=== PATIENT | female | born 1970 | race Caucasian/White ===

== ENCOUNTER 2016-10-05 16:04 | Emergency (ER) | payer OTHER ==
[~2016-10-05] VITALS: Ht 170.2 cm; Wt 59.0 kg
[~2016-10-05 16:04] MED LIST: ATA25 PO; ATARAX50 M PO; CLA10 PO; FLA500 PO; HIBICLENS118 ML TOP; HYD1C TOP; KLOR-CON M2020 MEQ PO; LEXAPRO20 MG PO; MAGNESIUM OXID400 MG PO; MUPIROCIN2% TOP; NEU300 PO; NEURONTIN300 PO; NOR10T PO; PRE20 PO; PROVENT PO; SEROQUEL300 MG PO; SULFAMETHOXAZO PO; TRAZODONE HYDR150 MG PO; TRAZODONE100 M1 PO; VENTOLIN H0.09 MG/Ac IH; VENTOLIN PO; VICES PO
[2016-10-05 17:32] LABS: CALCIUM 9.8 mg/dL (8.5-10.1); CARBON DIOXIDE 18.2 mmol/L (21-32); CHLORIDE SERUM 109 mmol/L (98-107); GFR1 > 60 mL/min; GLUCOSE SERUM 96 mg/dL (74-106); POTASSIUM SERUM 3.3 mmol/L (3.5-5.1); SODIUM SERUM 146 mmol/L (136-145)
[2016-10-05 19:26] VITALS: BP 147/99
== END 2016-10-05 19:31 | disposition home or self-care (01) ==
LOC: ED 16:04
PROVIDERS: Emergency Medicine
DX: E86.0 Dehydration (principal); I69.352 Hemiplegia and hemiparesis following cerebral infarction affecting left dominant side; Z88.5 Allergy status to narcotic agent; Z90.49 Acquired absence of other specified parts of digestive tract; Z98.890 Other specified postprocedural states
CPT/HCPCS: J1885; J2405

== ENCOUNTER 2016-12-21 16:54 | Emergency (ER) | payer OTHER ==
[2016-12-21 18:53] VITALS: BP 143/96
== END 2016-12-21 18:53 | disposition home or self-care (01) ==
LOC: ED 16:54
DX: S50.11XA Contusion of right forearm, initial encounter (principal); G89.29 Other chronic pain; F17.210 Nicotine dependence, cigarettes, uncomplicated; G81.94 Hemiplegia, unspecified affecting left nondominant side; Z71.6 Tobacco abuse counseling; Z86.73 Personal history of transient ischemic attack (TIA), and cerebral infarction without residual deficits; W17.89XA Other fall from one level to another, initial encounter; Y93.89 Activity, other specified; Y99.8 Other external cause status; Y92.89 Other specified places as the place of occurrence of the external cause
CPT/HCPCS: 99406

== ENCOUNTER 2017-10-12 20:04 | Emergency (ER) | payer OTHER ==
[~2017-10-12] VITALS: Ht 170.2 cm; Wt 68.0 kg
[2017-10-12 20:16] VITALS: Ht 170.2 cm; Wt 68.0 kg
[2017-10-12 23:53] VITALS: BP 111/74
== END 2017-10-12 23:53 | disposition home or self-care (01) ==
LOC: ED 20:04
DX: S01.91XA Laceration without foreign body of unspecified part of head, initial encounter (principal); I10 Essential (primary) hypertension; Z88.5 Allergy status to narcotic agent; X58.XXXA Exposure to other specified factors, initial encounter; Y93.89 Activity, other specified; Y92.89 Other specified places as the place of occurrence of the external cause; Y99.8 Other external cause status
CPT/HCPCS: 83880; J1885; J2405; J3010

== ENCOUNTER 2017-10-22 13:23 | Emergency (ER) | payer OTHER ==
[~2017-10-22] VITALS: Ht 167.6 cm; Wt 68.0 kg
[2017-10-22 13:51] VITALS: Ht 167.6 cm; Wt 68.0 kg
[2017-10-22 14:50] LABS: BASOPHIL % 0.3 % (0-2)
[2017-10-22 14:59] LABS: PLATELET COUNT 118 x10^3mcL (130-400); RED CELL DISTRIBUTION WIDTH 14.7 % (11.5-14.5)
[2017-10-22 15:05] LABS: ALBUMIN 3.4 g/dL (3.4-5.0); ALKALINE PHOSPHATASE 302 U/L (46-116); ALT/SGPT 39 U/L (14-59); AST/SGOT 28 U/L (15-37); BILIRUBIN TOTAL 0.5 mg/dL (0.20-1.00); CALCIUM 8.6 mg/dL (8.5-10.1); CARBON DIOXIDE 27.4 mmol/L (21-32); CHLORIDE SERUM 119 mmol/L (98-107); CREATININE SERUM 0.8 mg/dL (0.6-1.0); GFR1 > 60 mL/min; GLUCOSE SERUM 92 mg/dL (74-106); SODIUM SERUM 142 mmol/L (136-145); TOTAL PROTEIN, SERUM 6.4 g/dL (6.4-8.2)
[2017-10-22 16:36] VITALS: BP 153/94
== END 2017-10-22 16:36 | disposition home or self-care (01) ==
LOC: ED 13:23
PROVIDERS: Emergency Medicine
DX: S30.0XXA Contusion of lower back and pelvis, initial encounter (principal); E87.6 Hypokalemia; D64.89 Other specified anemias; G89.29 Other chronic pain; I10 Essential (primary) hypertension; Z88.5 Allergy status to narcotic agent; W18.39XA Other fall on same level, initial encounter; Y93.89 Activity, other specified; Y92.89 Other specified places as the place of occurrence of the external cause; Y99.8 Other external cause status
CPT/HCPCS: 36415; J1885

== ENCOUNTER 2018-02-14 12:10 | Emergency (ER) | payer OTHER ==
[2018-02-14 12:18] VITALS: Ht 170.2 cm
[2018-02-14 16:45] LABS: BASOPHIL % 0.5 % (0-2); PLATELET COUNT 147 x10^3mcL (130-400)
[2018-02-14 16:46] LABS: RED CELL DISTRIBUTION WIDTH 15.5 % (11.5-14.5)
[2018-02-14 16:49] LABS: CALCIUM 9.5 mg/dL (8.5-10.1); CARBON DIOXIDE 25.6 mmol/L (21-32); CHLORIDE SERUM 102 mmol/L (98-107); CREATININE SERUM 0.8 mg/dL (0.6-1.0); GFR1 > 60 mL/min; GLUCOSE SERUM 99 mg/dL (74-106); POTASSIUM SERUM 3.4 mmol/L (3.5-5.1); SODIUM SERUM 138 mmol/L (136-145)
[2018-02-14 16:53] LABS: ALBUMIN 4.8 g/dL (3.4-5.0); ALKALINE PHOSPHATASE 347 U/L (46-116); ALT/SGPT 280 U/L (14-59); AST/SGOT 194 U/L (15-37)
[2018-02-14 17:59] VITALS: BP 145/105
== END 2018-02-14 17:59 | disposition home or self-care (01) ==
LOC: ED 12:10
PROVIDERS: Emergency Medicine
DX: G43.909 Migraine, unspecified, not intractable, without status migrainosus (principal); K21.0 Gastro-esophageal reflux disease with esophagitis; R74.8 Abnormal levels of other serum enzymes; I10 Essential (primary) hypertension; Z86.73 Personal history of transient ischemic attack (TIA), and cerebral infarction without residual deficits; Z98.890 Other specified postprocedural states; Z90.49 Acquired absence of other specified parts of digestive tract
CPT/HCPCS: J1200; J2765; J3490; J7030; Q0092

== ENCOUNTER 2018-05-02 01:33 | Inpatient (IN) | payer OTHER ==
[~2018-05-02] VITALS: Ht 170.2 cm; Wt 65.8 kg
[2018-05-02 01:44] VITALS: Ht 170.2 cm; Wt 65.8 kg
[2018-05-02 02:23] LABS: CALCIUM 9.8 mg/dL (8.5-10.1); CARBON DIOXIDE 25.2 mmol/L (21-32); CHLORIDE SERUM 101 mmol/L (98-107); CREATININE SERUM 0.9 mg/dL (0.6-1.0); GFR1 > 60 mL/min; GLUCOSE SERUM 144 mg/dL (74-106); POTASSIUM SERUM 3.3 mmol/L (3.5-5.1); SODIUM SERUM 138 mmol/L (136-145)
[2018-05-02 03:56] LABS: BASOPHIL % 0 % (0-2); PLATELET COUNT 114 x10^3mcL (130-400); RED CELL DISTRIBUTION WIDTH 14.6 % (11.5-14.5)
[2018-05-02 05:27] LABS: UA SPECIFIC GRAVITY 1.015 (1.005-1.035); microscopic required? YES; urine erythrocyte TRACE (NEGATIVE)
[2018-05-02] MEDS ORDERED: ZANAFLEX4 MG PO ×2 (05:36→05:37)
[2018-05-02] MEDS ORDERED: AMLODIPINE BES2.5 M1 PO (05:38)
[2018-05-02] MEDS ORDERED: LIPI20 PO (05:39)
[2018-05-02] MEDS ORDERED: AMBIEN5 MG PO (05:40)
[2018-05-02 06:28] LABS: AMPHETAMINE QUAL UR NONE DETECTED (See below)
[2018-05-02 06:28] LABS: MAGNESIUM 1.9 mg/dL (1.8-2.4); PHOSPHOROUS 2.2 mg/dL (2.5-4.9)
[2018-05-02 07:13] LABS: CHOLESTEROL/HDL RATIO 1.7
[2018-05-02 10:14] VITALS: BP 159/108
[2018-05-02 12:42] VITALS: BP 185/90
[2018-05-02 17:13] VITALS: BP 175/78
[2018-05-02 18:26] VITALS: BP 163/100
[2018-05-02 20:46] VITALS: BP 159/101
[2018-05-03 07:01] LABS: BASOPHIL % 0.4 % (0-2)
[2018-05-03 07:07] LABS: PLATELET COUNT 89 x10^3mcL (130-400); RED CELL DISTRIBUTION WIDTH 14.7 % (11.5-14.5)
[2018-05-03 07:18] LABS: CALCIUM 8.7 mg/dL (8.5-10.1); CARBON DIOXIDE 25.9 mmol/L (21-32); CHLORIDE SERUM 104 mmol/L (98-107); CREATININE SERUM 0.7 mg/dL (0.6-1.0); GFR1 > 60 mL/min; GLUCOSE SERUM 79 mg/dL (74-106); MAGNESIUM 2.1 mg/dL (1.8-2.4); PHOSPHOROUS 2.4 mg/dL (2.5-4.9); POTASSIUM SERUM 3.3 mmol/L (3.5-5.1); SODIUM SERUM 139 mmol/L (136-145)
[2018-05-03 07:43] VITALS: BP 95/53
[2018-05-03 13:15] VITALS: BP 95/62
[2018-05-03 16:35] VITALS: BP 85/53
[2018-05-03 19:02] VITALS: BP 118/76
[2018-05-04 05:32] VITALS: BP 128/71
[2018-05-04 06:58] LABS: CALCIUM 7.7 mg/dL (8.5-10.1); CARBON DIOXIDE 24.7 mmol/L (21-32); CHLORIDE SERUM 108 mmol/L (98-107); CREATININE SERUM 0.8 mg/dL (0.6-1.0); GFR1 > 60 mL/min; GLUCOSE SERUM 82 mg/dL (74-106); MAGNESIUM 1.9 mg/dL (1.8-2.4); PHOSPHOROUS 2.7 mg/dL (2.5-4.9); POTASSIUM SERUM 3.5 mmol/L (3.5-5.1); SODIUM SERUM 141 mmol/L (136-145)
[2018-05-04 06:59] LABS: BASOPHIL % 0.7 % (0-2); RED CELL DISTRIBUTION WIDTH 14.3 % (11.5-14.5)
[2018-05-04 07:06] LABS: PLATELET COUNT 77 x10^3mcL (130-400)
[2018-05-04 08:12] VITALS: BP 122/91
[2018-05-04 09:48] VITALS: BP 122/91
== END 2018-05-04 12:40 | disposition home health service (06) | DRG 249 ==
LOC: ED 01:33 → DU 05:27
PROVIDERS: Emergency Medicine; General Practice; Internal Medicine
DX: A08.4 Viral intestinal infection, unspecified (principal); K74.60 Unspecified cirrhosis of liver; E83.39 Other disorders of phosphorus metabolism; M84.459A Pathological fracture, hip, unspecified, initial encounter for fracture; E86.0 Dehydration; E87.6 Hypokalemia; K29.70 Gastritis, unspecified, without bleeding; R73.9 Hyperglycemia, unspecified; I73.9 Peripheral vascular disease, unspecified; G43.909 Migraine, unspecified, not intractable, without status migrainosus; I16.0 Hypertensive urgency; M62.838 Other muscle spasm; E78.5 Hyperlipidemia, unspecified; K21.9 Gastro-esophageal reflux disease without esophagitis; G89.29 Other chronic pain; M54.9 Dorsalgia, unspecified; I10 Essential (primary) hypertension; Z68.23 Body mass index [BMI] 23.0-23.9, adult; Z86.73 Personal history of transient ischemic attack (TIA), and cerebral infarction without residual deficits; Z90.49 Acquired absence of other specified parts of digestive tract; Z87.11 Personal history of peptic ulcer disease; Z82.62 Family history of osteoporosis; Z87.891 Personal history of nicotine dependence; Z87.440 Personal history of urinary (tract) infections
CPT/HCPCS: 97116-GP; 97530-GP; J1200; J1644; J1885; J2270; J2405; J2550; J2765; J3480; J7030; Q0092

== ENCOUNTER 2018-06-24 02:20 | Emergency (ER) | payer OTHER ==
[~2018-06-24] VITALS: Ht 170.2 cm; Wt 72.6 kg
[~2018-06-24 02:20] MED LIST changes: +AMBIEN5 MG PO; +AMLODIPINE BES2.5 M1 PO; +LIPI20 PO; +ZANAFLEX4 MG PO
[2018-06-24 02:30] VITALS: Ht 170.2 cm; Wt 72.6 kg
[2018-06-24 03:02] LABS: BASOPHIL % 0.4 % (0-2); PLATELET COUNT 146 x10^3mcL (130-400); RED CELL DISTRIBUTION WIDTH 13.5 % (11.5-14.5)
[2018-06-24 03:10] LABS: CALCIUM 9.9 mg/dL (8.5-10.1); CARBON DIOXIDE 20.8 mmol/L (21-32); CHLORIDE SERUM 107 mmol/L (98-107); GFR1 > 60 mL/min; GLUCOSE SERUM 121 mg/dL (74-106); POTASSIUM SERUM 3.8 mmol/L (3.5-5.1); SODIUM SERUM 145 mmol/L (136-145)
[2018-06-24 03:15] LABS: ALBUMIN 4.8 g/dL (3.4-5.0); ALKALINE PHOSPHATASE 272 U/L (46-116); ALT/SGPT 99 U/L (14-59); AST/SGOT 59 U/L (15-37); BILIRUBIN TOTAL 0.56 mg/dL (0.20-1.00); LIPASE 122 IU/L (73-393); TOTAL PROTEIN, SERUM 8.7 g/dL (6.4-8.2)
[2018-06-24 05:03] LABS: AMPHETAMINE QUAL UR NONE DETECTED (See below)
[2018-06-24 07:06] VITALS: BP 165/92
== END 2018-06-24 07:06 | disposition home or self-care (01) ==
LOC: ED 02:20
PROVIDERS: Emergency Medicine
DX: R11.2 Nausea with vomiting, unspecified (principal); R10.13 Epigastric pain; I10 Essential (primary) hypertension; G89.29 Other chronic pain; M54.9 Dorsalgia, unspecified; Z86.73 Personal history of transient ischemic attack (TIA), and cerebral infarction without residual deficits; Z90.49 Acquired absence of other specified parts of digestive tract; Z98.890 Other specified postprocedural states
CPT/HCPCS: G0480; J1200; J2060; J2270; J2405; J2765; J7030

== ENCOUNTER 2018-06-26 02:27 | Inpatient (IN) | payer OTHER ==
[~2018-06-26] VITALS: Ht 167.6 cm; Wt 67.1 kg
--- NOTE | 2018-06-26 03:00 | NUR ---
Pt has rtn'd to ED for further evaluation of N/V not relieved by RX given on 06/23/18; pt has hx of CVA and ETOH abuse; pt presents with wretching and vomiting; preliminary orders rec'd
[2018-06-26 03:17] LABS: BASOPHIL % 0.3 % (0-2); RED CELL DISTRIBUTION WIDTH 13.5 % (11.5-14.5)
[2018-06-26 03:20] LABS: PLATELET COUNT 89 x10^3mcL (130-400)
[2018-06-26 03:28] LABS: CALCIUM 9.2 mg/dL (8.5-10.1); CARBON DIOXIDE 21.6 mmol/L (21-32); CHLORIDE SERUM 105 mmol/L (98-107); CREATININE SERUM 0.9 mg/dL (0.6-1.0); GFR1 > 60 mL/min; GLUCOSE SERUM 145 mg/dL (74-106); POTASSIUM SERUM 3.2 mmol/L (3.5-5.1); SODIUM SERUM 141 mmol/L (136-145)
[2018-06-26 03:33] LABS: ALBUMIN 4.6 g/dL (3.4-5.0); ALKALINE PHOSPHATASE 202 U/L (46-116); ALT/SGPT 61 U/L (14-59); AST/SGOT 40 U/L (15-37); BILIRUBIN TOTAL 0.73 mg/dL (0.20-1.00); LIPASE 164 IU/L (73-393)
--- NOTE | 2018-06-26 04:04 | NUR ---
Multiple attempts at IV access by 3 different individuals; MD contreras
--- NOTE | 2018-06-26 04:11 | NUR ---
Lab were drawn by phlebotomy
--- NOTE | 2018-06-26 04:57 | NUR ---
After several attempts at peripheral IV, L EJ placed by Dr Watkins; IV fluids and meds given, pt continues to remian non compliant with instructions to remain on R side, reinstructed regarding IV line and movement; pt sts does verbalize understanding, but continues to disregard instruction; aware
--- NOTE | 2018-06-26 05:14 | NUR ---
Pt to be admitted, pt notified, verbalized understanding; EJ remains infusing well, education and information reinforced regarding pt to remain still while fluids are in fusing; pt sts verbalized understanding
[2018-06-26 05:34] LABS: CHOLESTEROL/HDL RATIO 1.8; MAGNESIUM 1.9 mg/dL (1.8-2.4); PHOSPHOROUS 4.1 mg/dL (2.5-4.9)
[2018-06-26 05:38] LABS: FREE T4 0.88 ng/dL (0.76-1.46); FREE THYROXINE INDEX 2.5 ug/dL (1.4-4.5); T4(THYROXINE) 7.1 ug/dL (4.7-13.3)
--- NOTE | 2018-06-26 05:44 | NUR ---
URINE OBTAINED BY STRAIGHT CATH, PT NOW REQUESTING MEDS FOR ANXIETY
[2018-06-26] MEDS ORDERED: PERCOCET1 TA5 PO (05:47)
--- NOTE | 2018-06-26 05:58 | NUR ---
Report given to Pam: [id number], suggested pt has a sitter due to possibility of removing IV line
--- NOTE | 2018-06-26 06:20 | NUR ---
RECEIVED PT FROM ED VIA WHEELCHAIR. PT IS AAOX4. DENIES HEADACHE OR DIZZINESS. BREATHING EVEN AND UNLABORED, LUNG SOUNDS CTA ON RA. PT HAS LEJ, PT TRYING TO PULL IT OUT AT THIS TIME. PATIENT REPORTS FEELING NAUSEAUS. LEFT ARM CONTRACTED, LEFT SIDED WEAKNESS. PT LIMPS WHEN AMBULATING. PT HAS TREMORS ON THE LEFT LOWER EXTREMITY. SAFETY PRECAUTIONS AT BEDSIDE. DR IBARRA AT BEDSIDE.
[2018-06-26 06:55] LABS: UA SPECIFIC GRAVITY >=1.030 (1.005-1.035); microscopic required? YES; urine erythrocyte NEGATIVE (NEGATIVE)
[2018-06-26 07:13] LABS: AMPHETAMINE QUAL UR NONE DETECTED (See below)
--- NOTE | 2018-06-26 07:24 | NUR ---
ENDORSED CARE TO DAY SHIFT RN, ALL QUESTIONS ADDRESSED.
--- NOTE | 2018-06-26 07:30 | NUR ---
PT IS WALKING IN THE ROOM, SHE SAID SHE HAS ABD PAIN AND NAUSEA. DOCTOR AWARE. WAITING FOR ORDER'S. SAFTEY PRECAUTIONS ARE IN PLACE. WILL MONITOR.
[2018-06-26 07:33] LABS: T3 TOTAL 1.36 ng/mL
--- NOTE | 2018-06-26 08:08 | NUR ---
PT IS VOMITING. ZOFRAN IV GIVEN ORDERED. WILL MONITOR.
--- NOTE | 2018-06-26 09:10 | NUR ---
PT C/O ABDOMINAL PAIN. MEDICATED PT WITH PERCOCET PO ORDERED. WILL MONITOR.
--- NOTE | 2018-06-26 09:29 | NUR ---
ATTEMPTED EKG AT 0800, PATIENT REFUSED ALL TREATMENTS UNTIL SHE RECEIVED MEDICATION FOR NAUSEA FIRST. RN NOTIFIED. WILL ATTEMPT AGAIN LATER.
--- NOTE | 2018-06-26 09:49 | NUR ---
ECHOCARDIOGRAM PENDING-PATIENT REQUESTING TEST BE DONE AFTER SHE GEST MEDICATED FOR PAIN
[2018-06-26 10:05] VITALS: BP 189/115
--- NOTE | 2018-06-26 10:15 | NUR ---
PT SAID HER PAIN AND NAUSEA IS BETTER NOW. REQUESTED PT TO STAY IN THE BED. PT KEEP GETTING OUT OF THE BED.
--- NOTE | 2018-06-26 10:20 | NUR ---
AWAREABOUT PT BP 191/115. LABETALOL IV 4MG GIVEN ORDERED. RECEHCKED NOW 189/115, INFORMED . WILL RECHECK BP.
--- NOTE | 2018-06-26 11:00 | NUR ---
PT GOT OF THE BED AND SHGE WAS ABOUT TO FALL. SHE SAID SHE FEEL DIZZINESS. ASSISTED PT BACK IN THE BED AND STRICTLY INFORMED SHE HAS TO STAY IN THE BED. BED ALARM ON.
--- NOTE | 2018-06-26 11:30 | NUR ---
PT IS SLEEPING THIS TIME. STABLE. DENIES ANY PAIN OR NAUSEA.
--- NOTE | 2018-06-26 11:42 | NUR ---
PT TEMP 100.4F AND TYLENOL PO GIVEN ORDERED AND RECHECKED NOW, TEMP IS 98.6 NOW.
--- NOTE | 2018-06-26 12:30 | NUR ---
LUIS M CAMPOVERDE TOOK PT TO GI LAB FOR EGD. CONSENT AND CHECK LIST DONE.
--- NOTE | 2018-06-26 13:22 | NUR ---
ECHOCARDIOGRAM PENDING-HAVING EGD
--- NOTE | 2018-06-26 14:15 | NUR ---
ECHOCARDIOGRAM PENDING-NOT IN ROOM
--- NOTE | 2018-06-26 14:20 | NUR ---
RECEIVED PT FROM GI LAB AFTER EGD. STABLE. V/S STABLE. BP 101/67.
[2018-06-26 14:48] VITALS: BP 101/67
[2018-06-26 17:16] VITALS: BP 136/92
--- NOTE | 2018-06-26 17:48 | NUR ---
P.T. NOTES RECEIVED P.T. EVAL ORDER; Pt ALERT IN BED, DECLINED W/ P.T., REQUESTED TO BE SEEN TOMORROW, STATES "I HAVE NOT EATEN IN 3 DAYS, I DO NOT WANT TO DO THIS TODAY, I JUST WANT TO EAT, THEY GAVE ME JELLO FOR NOW", CALL [facility], PHONE, TABLE IN REACH; APPRECIATIVE; FOLLOW UP TOMORROW.
--- NOTE | 2018-06-26 19:00 | NUR ---
PT RESTING IN BED COMFORTABLY. DENIES PAIN THIS TIME. STABLE. GAVE REPORT TO TRAINING AND DEVELOPMENT ASSISTANT NURSE.
--- NOTE | 2018-06-26 19:25 | NUR ---
PT SITTING UP IN BED, REPORTING PERSISTENT NAUSEA. PT HAS EMESIS BASIN WITH LIQUID WHITE EMESIS. PT REPORTING PAIN TO ABD D/T PERSISTENT VOMITING. AOX4, DENIES SCHNEIDER/DIZZINESS. MEDSURG PT, DENIES CP. PULSES PALPABLE BILAT, DENIES NUMBNESS/TINGLING IN FEET. RESP EVEN AND UNLABORED ON RA, DENIES SOB. ABD SOFT, ROUND BOWEL SOUNDS ACTIVE X4 QUAD. PT UNDERSTANDS WE NEED STOOL SPECIMEN. PT HAS MOMENTS OF INCONTINENCEN PER DAYSHIFT, DENIES DYSURIA. HX OF CVA, LEFT SIDED DEFICIT (LEFT HAND CONTRACTURE), PT AMBUALTES WITH SLOW, UNSTEADY GAIT. WILL ENCOURAGE SAFETY PROTOCOL. SKIN INTACT. IV SITE TO LEJ PATENT, NO REDNESS, SWELLING OR PAIN NOTED. ALL COMFORT AND SAFETY MEASURES PROVIDED FOR, CALL LIGHT WITHIN REACH, BED IN LOWEST POSITION, WILL CONTINUE TO MONITOR.
[2018-06-26 21:05] VITALS: BP 156/88
--- NOTE | 2018-06-26 21:45 | NUR ---
PT USED CALL LIGHT REPORT NEEDING HELP TO BSC, OFFERED PT BEDSIDE COMMODE AND WHILE TO URINATED, BED LINENS CHANGED, PT DENIES DYSURIA, ENCOURAGED PT TO LET ME KNOW IF BED GETS SOILED TO ENSURE PT REMAINS CLEAN AND DRY. PT VERBALIZES UNDERSTANDS. WILL CONTINUE TO MONITOR.
--- NOTE | 2018-06-27 05:00 | NUR ---
PT RESTED IN INTERVALS DURING SHIFT, MEDICATED X1 WITH MORPHINE FOR GENERALIZED BODY PAIN, BACK PAIN. PT VOMITING X3 DUIRING SHIFT, CLEAR LIQUID. MEDICATED X1 WITH NORCO. PT DRANK 1600CC WATER, REPORTS WATER MAKES HER STOMACH FEEL BETTER. CHANGED PT REJ DRESSING, CDI. ALL COMFORT AND SAFETY MEASURES PROVIDED FOR, CALL LIGHT WIHTIN REACH, BED IN LOWEST POSITION, WILL CONTINUE TO MONITOR.
[2018-06-27 05:25] VITALS: BP 103/55
[2018-06-27 06:38] LABS: BASOPHIL % 0.3 % (0-2); PLATELET COUNT 76 x10^3mcL (130-400); RED CELL DISTRIBUTION WIDTH 13.3 % (11.5-14.5)
--- NOTE | 2018-06-27 06:45 | NUR ---
PERFORMED DSG CHANGE FOR PT LEJ D/T BLOODY DSG. PT TOLERATED DSG WELL. PT SITTING AT BEDSIDE. WILL CONTINUE TO MONITOR.
[2018-06-27 07:40] LABS: CALCIUM 9.4 mg/dL (8.5-10.1); CARBON DIOXIDE 21.9 mmol/L (21-32); CHLORIDE SERUM 104 mmol/L (98-107); CREATININE SERUM 0.7 mg/dL (0.6-1.0); GFR1 > 60 mL/min; GLUCOSE SERUM 95 mg/dL (74-106); POTASSIUM SERUM 3.4 mmol/L (3.5-5.1); SODIUM SERUM 139 mmol/L (136-145)
--- NOTE | 2018-06-27 07:45 | NUR ---
RECEIVED PT IN BED. ASSESSED AND DOCUMENTED. DENIES PAIN THIS TIME. SAFTEY PRECAUTIONS ARE IN PLACE. WILL MONITOR.
--- NOTE | 2018-06-27 08:32 | NUR ---
CANCELLATION REQUESTED FOR ECHOCARDIOGRAM
--- NOTE | 2018-06-27 09:00 | NUR ---
AWARE ABOUT PT K LEVEL IS 3.4. 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
[2018-06-27 09:09] VITALS: BP 132/95
[2018-06-27] MEDS ORDERED: PRILOSEC OTC20 M1 PO (09:44)
[2018-06-27 12:39] VITALS: BP 132/95
--- NOTE | 2018-06-27 15:13 | NUR ---
Nutrition Note NSG trigger received for "N/V/D >3 days" on 06/26/18. Pt. admitted with intractable vomiting x 2 days per H and P documentations after drinking wine on the weekend. EGD conducted on date of admission 06/26/18 with findings that suggest gastritis and main goal was treatment of symptoms per provider notes. Pt. does not meet high risk criteria at this time and will be assessed as low risk, with initial assessment due 07/03/18.
--- NOTE | 2018-06-27 15:50 | NUR ---
DISCHARGE INSTRUCTIONS AND PRESCRIPTION GIVEN. PB SIGNED AND SENT WITH PT. IV AND TELE REMOVED. PT DENIES ANY PAIN THIS TIME. CARRIER BLOWER WHEELED PT DOWN TO LOBBY ACCOMPANIED WITH PT'S FAMILY. PT DC HOME.
== END 2018-06-27 15:54 | disposition home or self-care (01) | DRG 241 ==
LOC: ED 02:27 → MU 05:05
PROVIDERS: Emergency Medicine; Internal Medicine Gastroenterology; ADMIT Internal Medicine
PROC: 0DB68ZX Excision of Stomach, Via Natural or Artificial Opening Endoscopic, Diagnostic (ICD-10-PCS; principal; 2018-06-26 13:30)
DX: K29.00 Acute gastritis without bleeding (principal); N17.0 Acute kidney failure with tubular necrosis; D69.6 Thrombocytopenia, unspecified; R65.10 Systemic inflammatory response syndrome (SIRS) of non-infectious origin without acute organ dysfunction; I69.354 Hemiplegia and hemiparesis following cerebral infarction affecting left non-dominant side; E86.0 Dehydration; K20.9 Esophagitis, unspecified; E87.6 Hypokalemia; I16.0 Hypertensive urgency; R74.0 Nonspecific elevation of levels of transaminase and lactic acid dehydrogenase [LDH]; R80.9 Proteinuria, unspecified; E11.9 Type 2 diabetes mellitus without complications; I10 Essential (primary) hypertension; Y90.9 Presence of alcohol in blood, level not specified; B95.62 Methicillin resistant Staphylococcus aureus infection as the cause of diseases classified elsewhere; F10.10 Alcohol abuse, uncomplicated; G89.29 Other chronic pain; Z87.891 Personal history of nicotine dependence; Z90.49 Acquired absence of other specified parts of digestive tract; Z87.11 Personal history of peptic ulcer disease; Z79.899 Other long term (current) drug therapy
CPT/HCPCS: 36569; 43235; 83880; 84439; 87804; C9113; G0480; J1200; J1610; J2250; J2270; J2310; J2405; J2765; J3010; J3480; J3490; Q0092

== ENCOUNTER 2018-09-12 14:45 | Emergency (ER) | payer OTHER ==
[~2018-09-12] VITALS: Ht 162.6 cm; Wt 66.2 kg
[~2018-09-12 14:45] MED LIST changes: +PERCOCET1 TA5 PO; +PRILOSEC OTC20 M1 PO
[2018-09-12 14:50] VITALS: Ht 162.6 cm; Wt 66.2 kg
[2018-09-12 19:59] VITALS: BP 119/85
== END 2018-09-12 19:59 | disposition home or self-care (01) ==
LOC: ED 14:45
DX: S70.02XA Contusion of left hip, initial encounter (principal); I10 Essential (primary) hypertension; G89.29 Other chronic pain; Z90.49 Acquired absence of other specified parts of digestive tract; W18.30XA Fall on same level, unspecified, initial encounter; Y93.89 Activity, other specified; Y92.89 Other specified places as the place of occurrence of the external cause; Y99.8 Other external cause status
CPT/HCPCS: J1885

== ENCOUNTER 2018-10-10 19:24 | Emergency (ER) | payer OTHER ==
[~2018-10-10] VITALS: Ht 170.2 cm; Wt 63.0 kg
[2018-10-10 19:56] VITALS: Ht 170.2 cm; Wt 63.0 kg
[2018-10-10 21:50] VITALS: BP 159/74
== END 2018-10-10 21:50 | disposition home or self-care (01) ==
LOC: ED 19:24
DX: S50.02XA Contusion of left elbow, initial encounter (principal); M19.022 Primary osteoarthritis, left elbow; I10 Essential (primary) hypertension; G89.29 Other chronic pain; Z90.49 Acquired absence of other specified parts of digestive tract; Z98.890 Other specified postprocedural states; Z86.73 Personal history of transient ischemic attack (TIA), and cerebral infarction without residual deficits; W07.XXXA Fall from chair, initial encounter; Y93.89 Activity, other specified; Y92.89 Other specified places as the place of occurrence of the external cause; Y99.8 Other external cause status
CPT/HCPCS: J1885

== ENCOUNTER 2018-12-10 04:13 | Inpatient (IN) | payer OTHER ==
[~2018-12-10] VITALS: Ht 170.2 cm; Wt 59.0 kg
[2018-12-10 04:21] VITALS: Ht 170.2 cm; Wt 59.0 kg
--- NOTE | 2018-12-10 04:26 | NUR ---
PT BIB AMBULANCE FOR ANXIETY ACCOMPANIED BY STOMACH PAIN. PT STS SHE HAS BEEN WITHOUT MEDICATION FOR 1 DAY. PT STS FATHER REGULATES HER MEDICATIONS. PT IS ROLLING FROM SIDE TO SIDE SAYING "IM SO ANXTIOUS RIGHT NOW". PT DOES NOT SPECIFY WHERE THE PAIN IN HER STOMACH IS. PT IS ABLE TO HOLD STILL FOR LESS THAN 1 MINUTE WHEN ASKED. INSTRUCTED PT TO BREATH SLOWER AND RELAX. PT IS SATURATING AT 99% ON ROOM AIR. AWAITING MSE. COMFORT MEASURES IMPLEMENTED. EMT AT BEDSIDE FOR EKG. WILL CONTINUE TO MONITOR.
--- NOTE | 2018-12-10 06:21 | NUR ---
PT MEDICATED PER ORDER. PT VERBALIZED UNDERSTANDING OF MEDICATION TEACHING. PT IS NOW SITTING OF SHAUNA MORE CALM. PT CONTINUES TO MOVE HER LEGS. WILL CONTINUE TO MONITOR.
[2018-12-10 06:44] LABS: PLATELET COUNT 163 x10^3mcL (130-400); RED CELL DISTRIBUTION WIDTH 13.9 % (11.5-14.5)
[2018-12-10 06:45] LABS: BASOPHIL % 0 % (0-2)
[2018-12-10 07:11] LABS: ALBUMIN 4.7 g/dL (3.4-5.0); ALKALINE PHOSPHATASE 492 U/L (46-116); ALT/SGPT 136 U/L (14-59); AST/SGOT 113 U/L (15-37); BILIRUBIN TOTAL 1.37 mg/dL (0.20-1.00); CALCIUM 9.4 mg/dL (8.5-10.1); CHLORIDE SERUM 105 mmol/L (98-107); CREATININE SERUM 0.8 mg/dL (0.6-1.0); GFR1 > 60 mL/min; GLUCOSE SERUM 95 mg/dL (74-106); LIPASE 69 IU/L (73-393); POTASSIUM SERUM 3.9 mmol/L (3.5-5.1); SODIUM SERUM 142 mmol/L (136-145); TOTAL PROTEIN, SERUM 7.7 g/dL (6.4-8.2)
--- NOTE | 2018-12-10 07:50 | NUR ---
ASSESSMENT PERFORMED AND UPON ASSESSMENT RAC IV INFILTRATED. DC IV HL AND WILL ATTEMPT NEW IV HL
--- NOTE | 2018-12-10 08:29 | NUR ---
PT CONNECTED TO STATE AUDITOR AND ROCEPHIN STARTED
--- NOTE | 2018-12-10 08:53 | NUR ---
DR CROOKS AT BEDSIDE FOR REEVAL
[2018-12-10 09:55] LABS: AMPHETAMINE QUAL UR NONE DETECTED (See below)
--- NOTE | 2018-12-10 10:08 | NUR ---
PT UP AMBULATING TO RESTROOM.
--- NOTE | 2018-12-10 11:00 | NUR ---
PT REFUSED TO TAKE OFF CLOTHING FOR ADMISSION
--- NOTE | 2018-12-10 11:23 | NUR ---
PT THRASHING ABOUT AT THIS TIME WITH C/O HEADACHE. VSS AT THIS TIME
--- NOTE | 2018-12-10 12:21 | NUR ---
REPORT GIVEN TO RAFAEL WELLINGTON RN
--- NOTE | 2018-12-10 13:00 | NUR ---
RECEIVED PT VIA GUERNEY FROM E/D, ACCOMPANIED BY RN AND TRANSPORTER. PT A/A/O X 4, ANXIOUS (RESTLESS, HYPERVENTILATING), BUT COOPERATIVE TO CARE AT THIS TIME; C/O CONSTANT H/A 9/10, RELIEVED BY PAIN MEDICATIONS. AMBULATORY, NOTED L-SIDED WEAKNESS AND LUE CONTRACTURE; FALL RISK PROTOCOL IN PLACE. ON TELE # 27, ST, HR 109, DENIES CHEST PAIN OR DISCOMFORT AT THIS TIME. NO ACUTE RESPIRATORY DISTRESS NOTED (PT INCONSISTENTLY HYPERVENTILATES; LUNGS CTAB, RISING EVENLY, R/A, 98%). ABD SOFT, FLAT, GENERALIZED TENDERNESS (CONSTANT ACHING 9/10, RELIEVED BY PAIN MEDICATIONS), HYPERACTIVE BOWEL SOUNDS X 4 QUADS, LAST BM 12/08/18, FORMED, EPISODES OF VOMITING X 2 (YELLOW, MODERATE AMOUNT). IV SITE RH 22G, CDI. ORIENTED PT TO ROOM, BED CONTROLS, CALL LIGHT SYSTEM. SIDE RAILS UP X 2, BED IN LOW POSITION. WILL CONTINUE TO MONITOR.
[2018-12-10 13:15] LABS: T3 TOTAL 0.63 ng/mL
[2018-12-10 13:27] LABS: CHOLESTEROL/HDL RATIO 1.7
[2018-12-10 13:55] LABS: FREE T4 0.82 ng/dL (0.76-1.46); FREE THYROXINE INDEX 1.7 ug/dL (1.4-4.5); T4(THYROXINE) 4.9 ug/dL (4.7-13.3)
--- NOTE | 2018-12-10 15:00 | NUR ---
PT IN BED, RESTING COMFORTABLY. NO S/S RESPIRATORY DISTRESS, CHEST PAIN, OR DISCOMFORT. SIDE RAILS UP X 2, BED IN LOW POSITION. WILL CONTINUE TO MONITOR.
[2018-12-10 16:36] VITALS: BP 154/96
[2018-12-10 16:51] VITALS: BP 105/62
--- NOTE | 2018-12-10 17:10 | NUR ---
PT IN BED RESTING COMFORTABLY. NO S/S RESPIRATORY DISTRESS, CHEST PAIN, OR DISCOMFORT. IV SITE TO RH REMAINS PATENT. RHYTHM CONVERTED TO NSR, HR 74. SIDE RAILS UP X 2, BED IN LOW POSITION. WILL CONTINUE TO MONITOR.
--- NOTE | 2018-12-10 19:10 | NUR ---
PT IN BED, RESTING COMFORTABLY BUT EASILY AROUSABLE. REMAINS ORIENTED X 4, CALM, COOPERATIVE. NO ACUTE RESPIRATORY DISTRESS, PAIN, OR DISCOMFORT NOTED. SIDE RAILS UP X 2, BED IN LOW POSITION, CALL LIGHT WITHIN REACH. WILL CONTINUE TO MONITOR.
[2018-12-10 20:31] VITALS: BP 95/60
--- NOTE | 2018-12-10 21:44 | NUR ---
RECEIVED PT FROM RAFAEL-YUKI, PT SEEN, ASLEEP BUT EASILY AROUSABLE, IVF INFUSING WELL, FALL PRECAUTION IN PLACE, NO DISTRESS NOTED, WILL KEEP TO MONITOR.
--- NOTE | 2018-12-10 23:40 | NUR ---
PT CALLED FOR HELP TO USE RESTROOM, DATA KEYER ASSISTED PT TO RESTROOM BUT PT WAS VERY DROWSY WITH VERY UNSTEADY GAIT, ASSISTED PT BACK TO BED WITHOUT ANY INCIDENT, FALL PRECAUTION IN PLACE, SIDE RAILS UP, BED ALARM ON, WILL KEEP TO MONITOR.
[2018-12-11 05:52] VITALS: BP 111/62
--- NOTE | 2018-12-11 05:53 | NUR ---
PT MORE AWAKE THIS MORNING, ASSISTED PT TO RESTROOM WITH VERY UNSTEADY GAIT, PER PT SHE ALWAYS WALKS LIKE THIS EVEN SHE IS AT HOME, EDUCATED PT THAT SHE IS HIGH RISK OF FALLING, INTRUCTED PT TO USE CALL LIGHTS WHEN SHE NEEDS TO USE RESTROOM BUT PT IS VERY NON-COMPLIANT, SIDE RAILS UP, BED ALARM ON, CLUTTER FREE ENVIRONMENT MAINTAINED, IVF INFUSING WELL, NPO AT THIS TIME FOR US ABD IN AM, NO DISTRESS NOTED, WILL KEEP TO MONITOR.
--- NOTE | 2018-12-11 06:02 | NUR ---
INSTRUCTED PT KEEP NPO AT THIS TIME FOR US ABD BUT PT IS NOT HAPPY WITH NPO STATUS, EXPLAINED THE PURPOSE OF US ABD.
[2018-12-11 06:25] LABS: BASOPHIL % 0.3 % (0-2); RED CELL DISTRIBUTION WIDTH 13.9 % (11.5-14.5)
[2018-12-11 06:42] LABS: CALCIUM 8.5 mg/dL (8.5-10.1); CARBON DIOXIDE 28.2 mmol/L (21-32); CHLORIDE SERUM 104 mmol/L (98-107); CREATININE SERUM 0.7 mg/dL (0.6-1.0); GFR1 > 60 mL/min; GLUCOSE SERUM 85 mg/dL (74-106); MAGNESIUM 1.6 mg/dL (1.8-2.4); PHOSPHOROUS 1.9 mg/dL (2.5-4.9); SODIUM SERUM 140 mmol/L (136-145)
[2018-12-11 06:57] LABS: PLATELET COUNT 105 x10^3mcL (130-400); POTASSIUM SERUM 2.6 mmol/L (3.5-5.1)
--- NOTE | 2018-12-11 07:00 | NUR ---
DR Shah MADE AWARE OF PT'S K-2.6.
[2018-12-11 07:07] LABS: UA SPECIFIC GRAVITY 1.015 (1.005-1.035); microscopic required? YES; urine erythrocyte TRACE (NEGATIVE)
--- NOTE | 2018-12-11 07:15 | NUR ---
BEDSIDE HANDOFF REPORT GIVEN TO STEVE, ALL QUESTIONS ANSWERED AND CONCERNS ADDRESSED.
--- NOTE | 2018-12-11 08:00 | NUR ---
SHIFT ASSESSMENT DONE. PATIENT A/A/OX4. TELE#27, SR, HR = 99. NO RESP DISTRESS ON RA. BUT C/O ANXIETY W/ WHOLE BODY PAIN. ANTI-ANXIETY MEDS AND PERCOCET 10/325 PO WOULD BE GIVEN. IVF OF NS 100CC/HR; IV SITE TO RAC INTACT. PATIENT HAS LT SIDE WEAKNESS. AMBULATED ON UNSTEADY GAIT. TOLERATED REGULAR DIET BREAKFAST. NO N/V NOW. CONTACT ISOLATION FOR HX OF MRSA (+) NARES. CALL LIGHT IN REACH.
--- NOTE | 2018-12-11 08:30 | NUR ---
PATIENT'S POTASSIUM LEVEL WAS 2.6; KCL 40 MEQ PO GIVEN AND K RIDER 40 MEQ IV STARTED.
[2018-12-11 09:28] VITALS: BP 114/78
[2018-12-11 13:08] VITALS: BP 90/58
--- NOTE | 2018-12-11 16:35 | NUR ---
[facility] REPORTED -- MRSA (+) NARES. PATIENT WAS ON CONTACT ISOLATION. DR. REHMAN NOTIFIED. NEW ORDER WRITTEN.
[2018-12-11 17:50] VITALS: BP 140/68
--- NOTE | 2018-12-11 18:09 | NUR ---
C/O ANXIETY. LEGS SHAKING. ATIVAN 1MG IVP GVIEN.
--- NOTE | 2018-12-11 19:10 | NUR ---
REPORT RECEIVED FROM DAY SHIFT RN. PATIENT WAS SEEN AND IS RESTING COMFORTABLY IN BED. A/OX4. BREATHING EVEN ON ROOM AIR. UNLABORED. NO SOB OR RESP DISTRESS NOTED. DENIES CHEST PAIN. TELE #27 NSR. NO C/O PAIN. PATIENT IS SLEEPY, BUT EASILY AROUSABLE BY VERBAL STIMULI. IV TO THE RFA INFUSING WELL. PATENT AND INTACT. NO REDNESS OR SWELLING NOTED. COMFORT AND SAFETY MEASURES IN PLACE. BED IS LOCKED AND IN THE LOWEST POSITION. SIDE RAILS UP X2. PATIENT IS AWARE THAT A STOOL SAMPLE IS NEEDED. CALL LIGHT IS WITHIN REACH. WILL CONTINUE TO MONITOR.
[2018-12-11 20:53] VITALS: BP 104/68
--- NOTE | 2018-12-11 22:24 | NUR ---
TELE MONITOR CALLED REPORTING THAT HR WENT UP TO 120-124. CHECKED ON PATIENT. PATIENT IS AWAKE AND SITTING ON BEDSIDE WITH SABENA, CRISIS THERAPIST, DRINKING WATER. PATIENT DENIES CHEST PAIN AND ASKED FOR FOOD. EGG SANDWHICH GIVEN. PATIENT IS ANXIOUS AND REQUESTING MEDICATION TO HELP WITH THAT. PATIENT HAD NO ORDERS FOR ANXIETY MEDS. WILL ASK DOCTOR FOR AN ORDER. NO DISTRESS NOTED. BREATHING EVEN ON ROOM AIR. CALL LIGHT IS WITHIN REACH WILL CONTINUE TO MONITOR.
--- NOTE | 2018-12-11 22:30 | NUR ---
CALLED TELE MONITOR ON UPDATED ON HR. REPORTED THAT HR IS DOWN TO 77, NSR. WILL CONTINUE TO MONITOR
--- NOTE | 2018-12-11 23:16 | NUR ---
PATIENT C/O ANXIETY. PRN ATIVAN 1MG IVP ADMINISTERED PRESCRIBED. 1MG WASTED WITH YUKI KEENAN. NO DISTRESS NOTED. BREATHING EVEN ON ROOM AIR. NO C/O PAIN. CALL LIGHT IS WITHIN REACH. WILL CONTINUE TO MONITOR.
--- NOTE | 2018-12-12 00:17 | NUR ---
PATIENT RESTING COMFORTABLY IN BED. NO DISTRESS NOTED. BREATHING EVEN AND UNLABORED ON ROOM AIR. NO S/S OF PAIN NOTED. IVF INFUSING WELL. SAFETY MEASURES IN PLACE. CALL LIGHT IS WITHIN REACH. WILL CONTINUE TO MONITOR.
--- NOTE | 2018-12-12 02:16 | NUR ---
PATIENT RESTING IN BED WITH EYES CLOSED. NO DISTRESS NOTED. BREATHING EVEN AND UNLABORED ON ROOM AIR. IVF INFUSING WELL. PATENT AND INTACT. NO REDNESS OR SWELLING NOTED. NO S/S OF PAIN NOTED. SAFETY MEASURES IN PLACE. CALL LIGHT IS WITHIN REACH. WILL CONTINUE TO MONITOR.
--- NOTE | 2018-12-12 03:56 | NUR ---
C/O ANXIETY AGAIN. PAGE GATED DR BRODERICK. PATIENT DOES NOT HAVE PRN ATIVAN ORDERED. NO DISTRESS NOTED. BREATHIN EVEN AND UNLABORED ON ROOM AIR. DENIES PAIN. SAFETY MEASURES IN PLACE. CALL LIGHT IS WITHIN REACH. WILL CONTINUE TO MONITOR.
--- NOTE | 2018-12-12 04:14 | NUR ---
PATIENT C/O ANXIETY. PRN ATIVAL 1MG WAS ADMINISTERED PRESCRIBED. NO DISTRESS NOTED. BREATHING EVEN ON ROOM AIR. UNLABORED. CALL LIGHT IS WITHIN REACH. SAFETY PRECAUTIONS IN PLACE. WILL CONTINUE TO MONITOR
[2018-12-12 05:04] VITALS: BP 102/54
--- NOTE | 2018-12-12 05:11 | NUR ---
PATIENT IS RESTING IN BED AT THIS TIME. AWAKE. NO DISTRESS NOTED. BREATHING EVEN AND UNLABORED ON ROOM AIR. NO C/O PAIN THROUGHOUT THE NIGHT. DENIES CHEST PAIN. IV TO THE RFA INFUSING WELL. PATENT AND INTACT. NO REDNESS OR SWELLING NOTED. NO BM ON THE SHIFT. C/O OF ANXIETY X2. MEDICATED WITH PRN ATIVAN WITH GOOD RELIEF. SAFETY MEASURES IN PLACE. CALL LIGHT IS WITHIN REACH. WILL CONTINUE TO MONITOR AND ENDORSE CARE TO DAY SHIFT RN.
--- NOTE | 2018-12-12 05:41 | NUR ---
ABEBA COX REPORT THAT SHE HAD A BM BUT FLUSHED IT.
--- NOTE | 2018-12-12 06:23 | NUR ---
PATIENT HAD ANOTHER LARGE BM IN STOOL HAT. PATIENT STATED SHE URINATED IN THE SAMPLE. UNABLE TO COLLECT DUE TO CONTAMINATION. EDUCATED PATIENT THAT THE STOOL CANNOT HAVE PEE IN IT. PATIENT STATED "OH NO. I THOUGHOUT YOU WANTED A URINE SAMPLE TOO. IM SO SORRY." PATIENT KEEPS ASKING FRO ANXIETY MEDS. REMINDED PATIENT THAT PRN ATIVAN WAS ADMINISTERED AROUND 0400 AND IS Q4H. PATIENT IS AWARE NEXT DOSE IS DUE AROUND 0800. WILL ENDORSE CARE TO DAY SHIFT RN
--- NOTE | 2018-12-12 08:00 | NUR ---
SHIFT ASSESSMENT DONE. PATIENTA/A/OX4; CLEAR SPEECH. HX OF CVA W/ LT SIDE WEAKNESS. L ARM CONTRACTURED. TEL#27; SR; HR = 96; O2 SAT 97% ON RA. C/O AMXIETY W/ WHOLE BODAY PAIN. ATIVAN 1MG IVP GIVEN AT 0745. IVF OF NS 100CC/HR. IV SITE TO RFA INTACT. AMBULATED ON UNSTEADY GAIT. SKIN INTACT. CONTACT ISOLATION FOR MRSA (+) NARES. CALL LIGHT IN REACH.
[2018-12-12 09:41] VITALS: BP 128/82
[2018-12-12 10:43] LABS: BASOPHIL % 0.3 % (0-2); RED CELL DISTRIBUTION WIDTH 14.1 % (11.5-14.5)
[2018-12-12 10:51] LABS: CALCIUM 8.2 mg/dL (8.5-10.1); CARBON DIOXIDE 24.8 mmol/L (21-32); CHLORIDE SERUM 111 mmol/L (98-107); CREATININE SERUM 0.9 mg/dL (0.6-1.0); GFR1 > 60 mL/min; GLUCOSE SERUM 121 mg/dL (74-106); MAGNESIUM 1.8 mg/dL (1.8-2.4); POTASSIUM SERUM 4.1 mmol/L (3.5-5.1); SODIUM SERUM 144 mmol/L (136-145)
[2018-12-12 10:56] LABS: PLATELET COUNT 82 x10^3mcL (130-400)
[2018-12-12] MEDS ORDERED: FLA500 PO (11:01)
[2018-12-12] MEDS ORDERED: LEVAQUIN750 MG PO (11:02)
[2018-12-12 11:27] VITALS: BP 128/82
[2018-12-12 12:50] VITALS: BP 114/78
--- NOTE | 2018-12-12 14:30 | NUR ---
D/C TO HOME PER ORDER. INSTRUCTION GIVEN TO PATIENT AND CAREGIVER, RONAN. IV D'C'D. OVER NEEDLE CATH INTACT. CONDITION STABLE.
== END 2018-12-12 14:31 | disposition home or self-care (01) | DRG 720 ==
LOC: ED 04:13 → DU 11:40
PROVIDERS: Emergency Medicine; ADMIT General Practice
DX: A41.9 Sepsis, unspecified organism (principal); I69.354 Hemiplegia and hemiparesis following cerebral infarction affecting left non-dominant side; K70.30 Alcoholic cirrhosis of liver without ascites; I10 Essential (primary) hypertension; G89.29 Other chronic pain; F41.9 Anxiety disorder, unspecified; K21.9 Gastro-esophageal reflux disease without esophagitis; E87.6 Hypokalemia; K52.9 Noninfective gastroenteritis and colitis, unspecified; Z88.5 Allergy status to narcotic agent; Z86.73 Personal history of transient ischemic attack (TIA), and cerebral infarction without residual deficits; Z90.49 Acquired absence of other specified parts of digestive tract
CPT/HCPCS: 83880; 84439; 87046; 87046-59; G0378; J0696; J1200; J1956; J2060; J2405; J3010; J3480; J3490; J7030; J7060; Q0092

== ENCOUNTER 2018-12-19 17:28 | Emergency (ER) | payer OTHER ==
[~2018-12-19] VITALS: Ht 170.2 cm; Wt 63.5 kg
[~2018-12-19 17:28] MED LIST changes: +LEVAQUIN750 MG PO
[2018-12-19 17:57] VITALS: Ht 170.2 cm; Wt 63.5 kg
[2018-12-19 20:21] LABS: BASOPHIL % 0.1 % (0-2); PLATELET COUNT 95 x10^3mcL (130-400); RED CELL DISTRIBUTION WIDTH 14.4 % (11.5-14.5)
[2018-12-19 20:27] LABS: CARBON DIOXIDE 24.3 mmol/L (21-32); CHLORIDE SERUM 105 mmol/L (98-107); CREATININE SERUM 0.9 mg/dL (0.6-1.0); GFR1 > 60 mL/min; GLUCOSE SERUM 89 mg/dL (74-106); POTASSIUM SERUM 3.2 mmol/L (3.5-5.1); SODIUM SERUM 141 mmol/L (136-145)
[2018-12-19 20:32] LABS: ALBUMIN 3.9 g/dL (3.4-5.0); ALKALINE PHOSPHATASE 415 U/L (46-116); ALT/SGPT 195 U/L (14-59); AST/SGOT 492 U/L (15-37); BILIRUBIN TOTAL 1.4 mg/dL (0.20-1.00); TOTAL PROTEIN, SERUM 6.7 g/dL (6.4-8.2)
[2018-12-20 01:05] VITALS: BP 153/98
== END 2018-12-20 01:08 | disposition short-term general hospital (02) ==
LOC: ED 17:28
PROVIDERS: Emergency Medicine
DX: S42.202A Unspecified fracture of upper end of left humerus, initial encounter for closed fracture (principal); S72.002A Fracture of unspecified part of neck of left femur, initial encounter for closed fracture; W18.30XA Fall on same level, unspecified, initial encounter; Y93.89 Activity, other specified; Y92.89 Other specified places as the place of occurrence of the external cause; Y99.8 Other external cause status
CPT/HCPCS: J1200; J1885; J2270; J3490; Q0092; Q0162

== ENCOUNTER 2019-01-28 13:50 | Emergency (ER) | payer OTHER ==
[~2019-01-28] VITALS: Ht 152.4 cm; Wt 63.5 kg
[2019-01-28 13:53] VITALS: Ht 152.4 cm; Wt 63.5 kg
[2019-01-28 16:54] VITALS: BP 138/75
== END 2019-01-28 16:54 | disposition home or self-care (01) ==
LOC: ED 13:50
DX: S50.312A Abrasion of left elbow, initial encounter (principal); I10 Essential (primary) hypertension; G89.29 Other chronic pain; M54.9 Dorsalgia, unspecified; Z90.49 Acquired absence of other specified parts of digestive tract; Z98.890 Other specified postprocedural states; Z88.5 Allergy status to narcotic agent; W01.0XXA Fall on same level from slipping, tripping and stumbling without subsequent striking against object, initial encounter; Y93.89 Activity, other specified; Y92.89 Other specified places as the place of occurrence of the external cause; Y99.8 Other external cause status
CPT/HCPCS: Q0162

== ENCOUNTER 2019-03-27 11:15 | Inpatient (IN) | payer OTHER ==
[~2019-03-27] VITALS: Ht 170.2 cm; Wt 62.8 kg
[2019-03-27 11:30] VITALS: Ht 170.2 cm; Wt 62.8 kg
[2019-03-27 12:40] LABS: BASOPHIL % 0.1 % (0-2); PLATELET COUNT 311 x10^3mcL (130-400)
[2019-03-27 12:44] LABS: CALCIUM 9.5 mg/dL (8.5-10.1); CARBON DIOXIDE 21.5 mmol/L (21-32); CHLORIDE SERUM 104 mmol/L (98-107); CREATININE SERUM 0.7 mg/dL (0.6-1.0); GFR1 > 60 mL/min; GLUCOSE SERUM 109 mg/dL (74-106); SODIUM SERUM 142 mmol/L (136-145)
[2019-03-27 12:47] LABS: RED CELL DISTRIBUTION WIDTH 16.2 % (11.5-14.5)
[2019-03-27 12:49] LABS: ALBUMIN 4.6 g/dL (3.4-5.0); ALKALINE PHOSPHATASE 188 U/L (46-116); ALT/SGPT 27 U/L (14-59); AST/SGOT 26 U/L (15-37); BILIRUBIN TOTAL 0.96 mg/dL (0.20-1.00)
[2019-03-27 12:51] LABS: TOTAL PROTEIN, SERUM 8.3 g/dL (6.4-8.2)
[2019-03-27 14:46] LABS: AMPHETAMINE QUAL UR NONE DETECTED (See below)
[2019-03-27] MEDS ORDERED: AMBIEN5 MG PO (17:38)
[2019-03-27] MEDS ORDERED: PERCOCET1 TA5 (17:39)
[2019-03-27] MEDS ORDERED: NOR5 PO (17:39)
[2019-03-27] MEDS ORDERED: LIPI10 PO (17:39)
[2019-03-27] MEDS ORDERED: PEPCID20 MG PO (17:40)
[2019-03-27] MEDS ORDERED: TIZANIDINE4 M1 PO (17:41)
[2019-03-27] MEDS ORDERED: ZANAFLEX4 MG PO (17:42)
[2019-03-27 19:49] LABS: UA SPECIFIC GRAVITY <=1.005 (1.005-1.035); microscopic required? YES; urine erythrocyte NEGATIVE (NEGATIVE)
[2019-03-28] VITALS (7 sets, daily range): BP systolic 129–180; BP diastolic 81–102
[2019-03-28 07:33] LABS: BASOPHIL % 0.2 % (0-2); PLATELET COUNT 140 x10^3mcL (130-400)
[2019-03-28 07:43] LABS: RED CELL DISTRIBUTION WIDTH 16.2 % (11.5-14.5)
[2019-03-28 07:45] LABS: CALCIUM 8.9 mg/dL (8.5-10.1); CARBON DIOXIDE 25.3 mmol/L (21-32); CHLORIDE SERUM 105 mmol/L (98-107); CREATININE SERUM 0.6 mg/dL (0.6-1.0); GFR1 > 60 mL/min; GLUCOSE SERUM 109 mg/dL (74-106); MAGNESIUM 1.8 mg/dL (1.8-2.4); PHOSPHOROUS 2.9 mg/dL (2.5-4.9); POTASSIUM SERUM 3.1 mmol/L (3.5-5.1); SODIUM SERUM 141 mmol/L (136-145)
[2019-03-28] MEDS ORDERED: ZANAFLEX CAPSULE4 MG PO (13:07)
[2019-03-29 06:34] VITALS: BP 133/97
[2019-03-29 09:21] VITALS: BP 134/98
[2019-03-29 12:08] VITALS: BP 144/102
== END 2019-03-29 13:35 | disposition home or self-care (01) | DRG 52 ==
LOC: ED 11:15 → DU 19:29
PROVIDERS: Emergency Medicine; ADMIT Internal Medicine
DX: G92 Toxic encephalopathy (principal); K70.30 Alcoholic cirrhosis of liver without ascites; E87.6 Hypokalemia; F11.23 Opioid dependence with withdrawal; I16.0 Hypertensive urgency; F41.9 Anxiety disorder, unspecified; K21.9 Gastro-esophageal reflux disease without esophagitis; F10.10 Alcohol abuse, uncomplicated; F17.290 Nicotine dependence, other tobacco product, uncomplicated; I69.331 Monoplegia of upper limb following cerebral infarction affecting right dominant side; Z88.5 Allergy status to narcotic agent; M54.9 Dorsalgia, unspecified; G89.29 Other chronic pain; T40.2X5A Adverse effect of other opioids, initial encounter; Y92.89 Other specified places as the place of occurrence of the external cause
CPT/HCPCS: 97116-GP; G0378; G0480; J0696; J1200; J1630; J2060; J7030; Q0092

== ENCOUNTER 2019-03-30 05:30 | Emergency (ER) | payer OTHER ==
[~2019-03-30] VITALS: Ht 170.2 cm; Wt 62.6 kg
[~2019-03-30 05:30] MED LIST changes: +LIPI10 PO; +NOR5 PO; +PEPCID20 MG PO; +PERCOCET1 TA5; +TIZANIDINE4 M1 PO; +ZANAFLEX CAPSULE4 MG PO
[2019-03-30 05:47] VITALS: Ht 170.2 cm; Wt 62.6 kg
[2019-03-30 07:54] LABS: BASOPHIL % 0.6 % (0-2); PLATELET COUNT 234 x10^3mcL (130-400)
[2019-03-30 07:56] LABS: RED CELL DISTRIBUTION WIDTH 15.8 % (11.5-14.5)
[2019-03-30 07:57] LABS: CALCIUM 9.5 mg/dL (8.5-10.1); CARBON DIOXIDE 21.2 mmol/L (21-32); CHLORIDE SERUM 105 mmol/L (98-107); CREATININE SERUM 0.8 mg/dL (0.6-1.0); GFR1 > 60 mL/min; GLUCOSE SERUM 126 mg/dL (74-106); POTASSIUM SERUM 3.5 mmol/L (3.5-5.1); SODIUM SERUM 142 mmol/L (136-145)
[2019-03-30 08:01] LABS: ALBUMIN 4.8 g/dL (3.4-5.0); ALKALINE PHOSPHATASE 186 U/L (46-116); ALT/SGPT 48 U/L (14-59); AST/SGOT 63 U/L (15-37); BILIRUBIN TOTAL 1.34 mg/dL (0.20-1.00); LIPASE 216 IU/L (73-393)
[2019-03-30 08:03] LABS: TOTAL PROTEIN, SERUM 8.6 g/dL (6.4-8.2)
[2019-03-30 09:22] VITALS: BP 188/116
== END 2019-03-30 09:22 | disposition home or self-care (01) ==
LOC: ED 05:30
PROVIDERS: Emergency Medicine
DX: N39.0 Urinary tract infection, site not specified (principal); R11.2 Nausea with vomiting, unspecified; R19.7 Diarrhea, unspecified; R10.9 Unspecified abdominal pain
CPT/HCPCS: J2550; J3010; Q0162

== ENCOUNTER 2019-03-30 17:33 | Emergency (ER) | payer OTHER ==
[~2019-03-30] VITALS: Ht 162.6 cm; Wt 62.1 kg
[2019-03-30 17:43] VITALS: Ht 162.6 cm; Wt 62.1 kg
[2019-03-30 20:23] VITALS: BP 185/118
== END 2019-03-30 20:23 | disposition home or self-care (01) ==
LOC: ED 17:33
DX: S40.011A Contusion of right shoulder, initial encounter (principal); S20.211A Contusion of right front wall of thorax, initial encounter; S90.02XA Contusion of left ankle, initial encounter; M54.5 Low back pain; I10 Essential (primary) hypertension; Z88.5 Allergy status to narcotic agent; Z90.49 Acquired absence of other specified parts of digestive tract; W06.XXXA Fall from bed, initial encounter; Y93.89 Activity, other specified; Y92.89 Other specified places as the place of occurrence of the external cause; Y99.8 Other external cause status
CPT/HCPCS: J1885; Q0162

== ENCOUNTER 2019-04-06 01:40 | Inpatient (IN) | payer OTHER ==
[~2019-04-06] VITALS: Ht 170.2 cm; Wt 58.6 kg
[2019-04-06 01:42] VITALS: Ht 170.2 cm; Wt 58.6 kg
[2019-04-06 03:11] LABS: BASOPHIL % 0.2 % (0-2)
[2019-04-06 03:13] LABS: PLATELET COUNT 124 x10^3mcL (130-400); RED CELL DISTRIBUTION WIDTH 16.1 % (11.5-14.5)
[2019-04-06 03:45] LABS: ALBUMIN 4.2 g/dL (3.4-5.0); ALKALINE PHOSPHATASE 162 U/L (46-116); ALT/SGPT 45 U/L (14-59); AMYLASE 76 U/L (25-115); AST/SGOT 34 U/L (15-37); BILIRUBIN TOTAL 0.97 mg/dL (0.20-1.00); CALCIUM 8.5 mg/dL (8.5-10.1); CARBON DIOXIDE 30.7 mmol/L (21-32); CHLORIDE SERUM 103 mmol/L (98-107); CREATININE SERUM 0.6 mg/dL (0.6-1.0); GFR1 > 60 mL/min; GLUCOSE SERUM 128 mg/dL (74-106); LIPASE 116 IU/L (73-393); SODIUM SERUM 144 mmol/L (136-145); TOTAL PROTEIN, SERUM 7.9 g/dL (6.4-8.2)
[2019-04-06 04:05] LABS: POTASSIUM SERUM 2.7 mmol/L (3.5-5.1)
[2019-04-06 07:08] VITALS: BP 183/109
[2019-04-06 08:11] VITALS: BP 183/109
[2019-04-06 08:42] VITALS: BP 179/118
[2019-04-06 09:01] LABS: microscopic required? NO
[2019-04-06 09:29] LABS: urine erythrocyte NEGATIVE (NEGATIVE)
[2019-04-06 09:45] LABS: AMPHETAMINE QUAL UR NONE DETECTED (See below)
[2019-04-06 13:13] VITALS: BP 133/93
[2019-04-06 17:04] VITALS: BP 95/62
[2019-04-06 20:17] VITALS: BP 156/43
[2019-04-07 05:06] VITALS: BP 97/60
[2019-04-07 07:34] LABS: CALCIUM 8.6 mg/dL (8.5-10.1); CARBON DIOXIDE 27.8 mmol/L (21-32); CHLORIDE SERUM 104 mmol/L (98-107); CREATININE SERUM 0.6 mg/dL (0.6-1.0); GFR1 > 60 mL/min; GLUCOSE SERUM 86 mg/dL (74-106); MAGNESIUM 1.4 mg/dL (1.8-2.4); PHOSPHOROUS 2.7 mg/dL (2.5-4.9); POTASSIUM SERUM 4.2 mmol/L (3.5-5.1); SODIUM SERUM 139 mmol/L (136-145)
[2019-04-07 08:49] VITALS: BP 120/78
[2019-04-07] MEDS ORDERED: SEROQUEL200 MG PO (09:53)
[2019-04-07] MEDS ORDERED: REG5 PO (09:53)
[2019-04-07] MEDS ORDERED: COLACE100 MG PO (09:54)
[2019-04-07 10:02] LABS: BASOPHIL % 0.6 % (0-2)
[2019-04-07 10:07] VITALS: BP 120/78
[2019-04-07 10:07] LABS: PLATELET COUNT 108 x10^3mcL (130-400); RED CELL DISTRIBUTION WIDTH 16.5 % (11.5-14.5)
[2019-04-07 11:50] VITALS: BP 89/59
[2019-04-07 13:05] VITALS: BP 111/77
== END 2019-04-07 18:02 | disposition home or self-care (01) | DRG 254 ==
LOC: ED 01:40 → DU 05:39
PROVIDERS: Emergency Medicine; ADMIT Internal Medicine
DX: K31.84 Gastroparesis (principal); E87.6 Hypokalemia; I10 Essential (primary) hypertension; F41.9 Anxiety disorder, unspecified; G89.29 Other chronic pain; M54.9 Dorsalgia, unspecified; Z86.73 Personal history of transient ischemic attack (TIA), and cerebral infarction without residual deficits; K21.9 Gastro-esophageal reflux disease without esophagitis; Z82.62 Family history of osteoporosis; I16.0 Hypertensive urgency
CPT/HCPCS: C9113; G0378; J1885; J2405; J2550; J2765; J3480; J3490; J7030; J7050; J8597

== ENCOUNTER 2020-01-28 12:03 | Emergency (ER) | payer OTHER ==
[~2020-01-28] VITALS: Ht 170.2 cm; Wt 61.2 kg
[~2020-01-28 12:03] MED LIST changes: +COLACE100 MG PO; +REG5 PO; +SEROQUEL200 MG PO
[2020-01-28 17:30] VITALS: BP 121/80
== END 2020-01-28 17:30 | disposition home or self-care (01) ==
LOC: ED 12:03
DX: S86.911A Strain of unspecified muscle(s) and tendon(s) at lower leg level, right leg, initial encounter (principal); I10 Essential (primary) hypertension; G89.29 Other chronic pain; M54.9 Dorsalgia, unspecified; Z98.890 Other specified postprocedural states; Z90.49 Acquired absence of other specified parts of digestive tract; W18.30XA Fall on same level, unspecified, initial encounter; Y93.89 Activity, other specified; Y92.89 Other specified places as the place of occurrence of the external cause; Y99.8 Other external cause status

== ENCOUNTER 2020-04-02 09:58 | Emergency (ER) | payer OTHER ==
[~2020-04-02] VITALS: Ht 170.2 cm; Wt 64.4 kg
[2020-04-02 10:07] VITALS: Ht 170.2 cm; Wt 64.4 kg
[2020-04-02 10:48] LABS: BASOPHIL % 0.5 % (0-2); PLATELET COUNT 137 x10^3mcL (130-400); RED CELL DISTRIBUTION WIDTH 14.1 % (11.5-14.5)
[2020-04-02 11:04] LABS: ALBUMIN 3.7 g/dL (3.4-5.0); ALKALINE PHOSPHATASE 255 U/L (46-116); ALT/SGPT 31 U/L (14-59); AST/SGOT 22 U/L (15-37); BILIRUBIN TOTAL 0.6 mg/dL (0.20-1.00); CALCIUM 8.7 mg/dL (8.5-10.1); CARBON DIOXIDE 27.5 mmol/L (21-32); CHLORIDE SERUM 101 mmol/L (98-107); CREATININE SERUM 0.7 mg/dL (0.6-1.0); GFR1 > 60 mL/min; SODIUM SERUM 132 mmol/L (136-145); TOTAL PROTEIN, SERUM 6.9 g/dL (6.4-8.2)
[2020-04-02 11:12] LABS: GLUCOSE SERUM 53 mg/dL (74-106)
[2020-04-02] MEDS ORDERED: PERCOCET1 TA5 PO (12:33)
[2020-04-02 13:06] VITALS: BP 119/75
== END 2020-04-02 13:06 | disposition home or self-care (01) ==
LOC: ED 09:58
PROVIDERS: Emergency Medicine
DX: S22.31XA Fracture of one rib, right side, initial encounter for closed fracture (principal); I10 Essential (primary) hypertension; G89.29 Other chronic pain; M54.9 Dorsalgia, unspecified; Z90.49 Acquired absence of other specified parts of digestive tract; W18.30XA Fall on same level, unspecified, initial encounter; Y93.89 Activity, other specified; Y92.89 Other specified places as the place of occurrence of the external cause; Y99.8 Other external cause status
CPT/HCPCS: 82962; J3490

== ENCOUNTER 2020-04-05 07:26 | Emergency (ER) | payer OTHER ==
[~2020-04-05] VITALS: Ht 170.2 cm; Wt 63.5 kg
[2020-04-05 07:34] VITALS: Ht 170.2 cm; Wt 63.5 kg
[2020-04-05 10:27] VITALS: BP 136/72
== END 2020-04-05 10:27 | disposition home or self-care (01) ==
LOC: ED 07:26
DX: S22.41XA Multiple fractures of ribs, right side, initial encounter for closed fracture (principal); G43.909 Migraine, unspecified, not intractable, without status migrainosus; G89.29 Other chronic pain; I10 Essential (primary) hypertension; Z98.890 Other specified postprocedural states; Z90.49 Acquired absence of other specified parts of digestive tract; Z86.73 Personal history of transient ischemic attack (TIA), and cerebral infarction without residual deficits; W18.39XA Other fall on same level, initial encounter; Y93.89 Activity, other specified; Y92.89 Other specified places as the place of occurrence of the external cause; Y99.8 Other external cause status
CPT/HCPCS: J1885; Q0162

== ENCOUNTER 2020-07-07 12:21 | Emergency (ER) | payer OTHER ==
[~2020-07-07] VITALS: Ht 170.2 cm; Wt 61.2 kg
[2020-07-07 12:24] VITALS: Ht 170.2 cm; Wt 61.2 kg
[2020-07-07 13:37] VITALS: BP 125/74
== END 2020-07-07 14:56 | disposition home or self-care (01) ==
LOC: ED 12:21
DX: S83.92XA Sprain of unspecified site of left knee, initial encounter (principal); I10 Essential (primary) hypertension; G89.29 Other chronic pain; M54.9 Dorsalgia, unspecified; W01.0XXA Fall on same level from slipping, tripping and stumbling without subsequent striking against object, initial encounter; Y93.89 Activity, other specified; Y92.89 Other specified places as the place of occurrence of the external cause; Y99.8 Other external cause status